=== PATIENT | male | born 1970 | race Two or more races ===

== ENCOUNTER → 2017-11-01 | Outpatient (CLI) | payer OTHER ==
[~2017-11-01] MED LIST: AMOX1TAB12 PO; BUCALSEP SPRAY30 ML MM; CLARITIN10 M1; CONEX TABLET1 EACH PO; GILTUSS TR TAB1 EACH PO; NABUMETONE500 MG PO; ZYRTEC10 MG PO
== END | disposition home or self-care (01) ==
LOC: SONOGRAMA 10:26
DX: N50.811 Right testicular pain (principal); J30.9 Allergic rhinitis, unspecified; E78.2 Mixed hyperlipidemia; R42 Dizziness and giddiness; R73.01 Impaired fasting glucose

== ENCOUNTER 2017-11-05 09:45 | Outpatient (CLI) | payer OTHER | END 2017-11-05 09:52 | disposition home or self-care (01) | LOC: LAB 09:45 | DX: J30.9 Allergic rhinitis, unspecified (principal); N50.811 Right testicular pain; E78.2 Mixed hyperlipidemia; R42 Dizziness and giddiness; R73.01 Impaired fasting glucose ==

== ENCOUNTER → 2017-12-15 15:18 | Outpatient (CLI) | payer OTHER | END | disposition home or self-care (01) | LOC: LAB 15:18 | DX: N43.2 Other hydrocele (principal); I86.1 Scrotal varices; Z12.5 Encounter for screening for malignant neoplasm of prostate ==

== ENCOUNTER 2018-02-11 10:09 | Outpatient (CLI) | payer OTHER | END 2018-02-11 10:17 | disposition home or self-care (01) | LOC: LAB 10:09 | DX: I10 Essential (primary) hypertension (principal); E78.4 Other hyperlipidemia; M54.2 Cervicalgia; M50.30 Other cervical disc degeneration, unspecified cervical region; M51.34 Other intervertebral disc degeneration, thoracic region; M51.36 Other intervertebral disc degeneration, lumbar region ==

== ENCOUNTER 2018-07-10 12:36 | Outpatient (CLI) | payer OTHER ==
[~2018-07-10] VITALS: Ht 188 cm; Wt 117.9 kg
== END 2018-07-10 12:50 | disposition home or self-care (01) ==
LOC: OFIC 805 12:36
DX: K21.0 Gastro-esophageal reflux disease with esophagitis (principal); G47.33 Obstructive sleep apnea (adult) (pediatric); R07.0 Pain in throat

== ENCOUNTER 2018-10-04 08:24 | Outpatient (CLI) | payer OTHER | END 2018-10-04 08:29 | disposition home or self-care (01) | LOC: LAB 08:24 | DX: E78.2 Mixed hyperlipidemia (principal); R73.03 Prediabetes ==

== ENCOUNTER 2018-10-11 09:31 | Outpatient (CLI) | payer OTHER ==
[~2018-10-11] VITALS: Ht 182.9 cm; Wt 117.9 kg
[2018-10-11] MEDS ORDERED: ZANTAC300 MG PO (12:28)
[2018-10-11] MEDS ORDERED: FLONASE16 GM NASAL (12:28)
[2018-10-11] MEDS ORDERED: ZYRTEC10 MG PO (12:28)
== END 2018-10-11 09:55 | disposition home or self-care (01) ==
LOC: OFIC 805 09:31
DX: J31.0 Chronic rhinitis (principal); J37.0 Chronic laryngitis; G47.33 Obstructive sleep apnea (adult) (pediatric)

== ENCOUNTER 2019-01-31 08:39 | Outpatient (CLI) | payer OTHER ==
[~2019-01-31] VITALS: Ht 182.9 cm; Wt 117.9 kg
[~2019-01-31 08:39] MED LIST changes: +FLONASE16 GM NASAL; +ZANTAC300 MG PO
[2019-01-31] MEDS ORDERED: ZYRTEC10 MG PO (11:05)
[2019-01-31] MEDS ORDERED: FLONASE16 GM NASAL (11:05)
== END 2019-01-31 11:23 | disposition home or self-care (01) ==
LOC: OFIC 805 08:39
DX: J31.0 Chronic rhinitis (principal); J37.0 Chronic laryngitis; G47.33 Obstructive sleep apnea (adult) (pediatric)

== ENCOUNTER 2019-12-05 16:39 | Outpatient (CLI) | payer OTHER | END 2019-12-05 16:44 | disposition home or self-care (01) | LOC: LAB 16:39 | PROVIDERS: ATTEND General Practice | DX: J11.1 Influenza due to unidentified influenza virus with other respiratory manifestations (principal); Z20.828 Contact with and (suspected) exposure to other viral communicable diseases; R21 Rash and other nonspecific skin eruption; L50.0 Allergic urticaria; R05 Cough ==

== ENCOUNTER 2020-06-11 06:10 | Outpatient (CLI) | payer OTHER | END 2020-06-11 06:18 | disposition home or self-care (01) | LOC: LAB 06:10 | PROVIDERS: ATTEND Internal Medicine Cardiovascular Disease | DX: I10 Essential (primary) hypertension (principal) ==

== ENCOUNTER → 2020-06-12 09:26 | Outpatient (CLI) | payer OTHER | END | disposition home or self-care (01) | LOC: LAB 09:26 | PROVIDERS: ATTEND Emergency Medicine Pediatric Emergency Medicine | DX: N39.0 Urinary tract infection, site not specified (principal) ==

== ENCOUNTER 2020-10-18 10:24 | Outpatient (CLI) | payer OTHER | END 2020-10-18 10:26 | disposition home or self-care (01) | LOC: RAD 10:24 | DX: M99.01 Segmental and somatic dysfunction of cervical region (principal); M99.02 Segmental and somatic dysfunction of thoracic region; M99.03 Segmental and somatic dysfunction of lumbar region; M62.830 Muscle spasm of back; M54.2 Cervicalgia; M54.5 Low back pain; M51.37 Other intervertebral disc degeneration, lumbosacral region ==

== ENCOUNTER 2021-08-22 09:30 | Outpatient (CLI) | payer OTHER | END 2021-08-22 15:20 | disposition home or self-care (01) | LOC: RAD 09:30 | DX: M20.41 Other hammer toe(s) (acquired), right foot (principal); M20.42 Other hammer toe(s) (acquired), left foot ==

== ENCOUNTER → 2021-09-08 08:11 | Outpatient (CLI) | payer OTHER | END | disposition home or self-care (01) | LOC: LAB 08:11 | PROVIDERS: ATTEND Podiatrist Foot Surgery | DX: E03.9 Hypothyroidism, unspecified (principal); D64.9 Anemia, unspecified; E11.9 Type 2 diabetes mellitus without complications; E78.2 Mixed hyperlipidemia; N39.0 Urinary tract infection, site not specified; I10 Essential (primary) hypertension; Z01.812 Encounter for preprocedural laboratory examination ==

== ENCOUNTER 2023-12-17 08:06 | Outpatient (CLI) | payer OTHER ==
[2023-12-17 09:35] LABS: URINE APPEARANCE Clear; URINE BILIRRUBIN Negative (NEGATIVE); URINE BLOOD Negative; URINE COLOR Yellow; URINE GLUCOSE Negative (NEGATIVE); URINE LEUKOCYTE Negative; URINE NITRATE Negative; URINE PROTEIN Negative (NEGATIVE)
[2023-12-17 09:40] LABS: URINE BACTERIA 13.8 uL (0.0-1933); URINE EPITHELIAL CELLS 2.3 uL (0.0-38.8); URINE WBC 4.3 uL (0.0-23.2)
[2023-12-17 10:04] LABS: URINE RBC 1.8 uL (0.0-20.8)
[2023-12-17 10:27] LABS: ALBUMIN 3.4 gm/dL (3.4-5.0); BILIRUBIN TOTAL 0.31 mg/dL (0.3-1.2); BILIRUBIN,CONJUGATED 0.1 mg/dL (0.0-0.2); BILIRUBIN,UNCONJUGATED 0.21 mg/dL (0.0-0.6); CALCIUM 8.6 mg/dL (8.5-10.1); CHOL HDL RATIO 4.4 (0-5.0); CREATININE SERUM 0.86 mg/dL (0.70-1.30); GFR 93.75; GLOBULINA 3.5 G/DL (2.4-3.5); POTASSIUM 4.24 mEq/L (3.5-5.1); PROSTATIC SPECIFIC ANTIGEN 1.87 NG/ML (0.010-4.00); T4 TOTAL 7.69 UG/DL (4.5-12.1); TOTAL PROTEIN 6.9 gm/dL (6.4-8.2); TSH 1.41 uIU/mL (0.358-3.74)
[2023-12-17 11:10] LABS: HEMATOCRIT 42.2 % (39.0-48.0); MEAN CELL VOLUME 90.8 fL (80.0-100.00); MEAN CORPUSCULAR HEMOGLOBIN 30.1 pg (27.00-32.0); MEAN CORPUSCULAR HGB CONC 33.2 g/dl (32.0-36.0); PLATELET COUNT 185 K/uL (150-450); RED BLOOD COUNT 4.65 M/uL (4.00-6.00); RED CELL DISTRIBUTION WIDTH 13.5 % (11.5-14.5)
[2023-12-17 13:15] LABS: T3 TOTAL 1.13 ng/ml (0.846-2.02); VITAMIN D3 25 HYDROXY 27.8 ng/ml (30-120)
== END 2023-12-17 23:00 | disposition home or self-care (01) ==
LOC: LAB 08:06 → CIR.AMB 13:15 → LAB 13:19
DX: E78.5 Hyperlipidemia, unspecified (principal); E55.9 Vitamin D deficiency, unspecified; N39.0 Urinary tract infection, site not specified; Z00.00 Encounter for general adult medical examination without abnormal findings; R42 Dizziness and giddiness; R10.9 Unspecified abdominal pain; Z12.5 Encounter for screening for malignant neoplasm of prostate

== ENCOUNTER 2025-02-25 08:37 | Outpatient (CLI) | payer OTHER ==
[2025-02-25 10:14] LABS: BASO % 0.3 % (0.1-1.2); EOS # 0.17 (0.04-0.54); EOS % 2.6 % (0.7-7.0); LYMPH # 1.89 (1.18-3.74); LYMPH % 28.9 % (19.3-53.1); MEAN PLATELET VOLUME 10.40 fl (9.4-12.4); MONO # 0.42 (0.24-0.82); MONO % 6.4 % (4.7-12.5); NEUT # 4.02 (1.56-6.13); NEUT % 61.3 % (34.0-71.1); RED CELL DISTRIBUTION WIDTH 12.8 % (11.6-14.4)
[2025-02-25 10:20] LABS: URINE APPEARANCE Clear; URINE BILIRRUBIN Negative (NEGATIVE); URINE BLOOD Negative; URINE COLOR Yellow; URINE GLUCOSE Negative (NEGATIVE); URINE KETONE Negative (NEGATIVE); URINE LEUKOCYTE Negative; URINE NITRATE Negative; URINE PROTEIN Negative (NEGATIVE); URINE UROBILINOGEN 0.2 E.U./dl
[2025-02-25 10:21] LABS: URINE BACTERIA 7.1 uL (0.0-1933); URINE EPITHELIAL CELLS 1.5 uL (0.0-38.8); URINE WBC 5.0 uL (0.0-23.2)
[2025-02-25 10:26] LABS: URINE CAST 0.00 uL (0.0-1.40); URINE RBC 1.1 uL (0.0-20.8)
[2025-02-25 11:35] LABS: ALT/SGPT 39.0 U/L (12-78); AST/SGOT 26.0 U/L (15-37); BILIRUBIN TOTAL 0.47 mg/dL (0.3-1.2); BUN CREA RATIO 17.0 (7.0-25.0); CHOL HDL RATIO 3.8 (0-5.0); CREATININE SERUM 0.78 mg/dL (0.70-1.30); GFR 104.52; GLOBULINA 3.5 G/DL (2.4-3.5); GLUCOSE FASTING 88.0 mg/dL (65-100); HDL 48.0 mg/dl (40-60); LDL 96.0 mg/dl (0-130); OSMOLALITY SERUM 283.0 MOSM/KG (275-295); PROSTATIC SPECIFIC ANTIGEN 2.46 NG/ML (0.010-4.00); VLDL 35.0 (0-39)
== END 2025-02-25 09:35 | disposition home or self-care (01) ==
LOC: LAB 08:37
DX: D64.9 Anemia, unspecified (principal); R97.20 Elevated prostate specific antigen [PSA]; E74.39 Other disorders of intestinal carbohydrate absorption; N20.0 Calculus of kidney